=== PATIENT | female | born 1975 | race Caucasian/White ===

== ENCOUNTER → 2024-07-18 17:25 | Outpatient (CLI) | payer OTHER, SELFPAY ==
--- NOTE | 2024-07-18 | DI.MRI.S_ITS ---
PROCEDURE: MR THORACIC SPINE WO CON INDICATIONS: BACK PAIN TECHNIQUE: Noncontrast sagittal T1 spine echo and T2 fast spin echo, sagittal STIR, and T2 fast spin echo through the thoracic spine. COMPARISON: None. FINDINGS: Image quality: Excellent. Alignment and Curvature: There is normal bony alignment. Bone Marrow: Marrow is of normal overall signal. No suspicious marrow edema. There are a few levels of endplate irregularity due to Schmorl's nodes, specifically T8 through T12. Small vertebral body hemangioma in T7. No acute vertebral body compression fractures. Spinal Cord: From T8 through T11, there is a thin syrinx. It measures 3 mm in maximal diameter at the T9 level. Paraspinous Soft Tissues: No paravertebral masses. Miscellaneous: There are small posterior disc bulges at several levels, specifically left paracentral at T5-6, posteriorly at T6-7, right paracentral at T7-8 which slightly L2 the cord shape but no significant CSF space effacement. Neural foramina are widely patent at all levels. Small nerve sheath cyst on the right at T11-12. 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 Multiple levels of mild degenerative disc bulge, predominantly in the mid thoracic spine. Dictated by: Claudia Dennis M.D. on 07/19/2024 at 9:40 Approved by: Claudia Dennis M.D. on 07/19/2024 at 10:23
--- NOTE | 2024-07-18 17:29 | DI.MRI.S_ITS ---
PROCEDURE: MR CERVICAL SPINE WO CON INDICATIONS: HYPERREFLEXIA TECHNIQUE: Noncontrast sagittal T1 spin echo and T2 fast spin echo, sagittal STIR, foraminal oblique sagittal T2 fast spin echo, and axial gradient echo or T2 fast spin echo through the cervical spine. COMPARISON: None. FINDINGS: Image quality: Excellent. Alignment and Curvature: Trace retrolisthesis C6-7. Otherwise normal bone alignment. Intact craniocervical junction. Bone Marrow: Marrow demonstrates normal overall signal. Spinal Cord: Visualized spinal cord has normal size and signal. No cerebellar tonsillar herniation. Paraspinous Soft Tissues: No paravertebral masses. Prevertebral soft tissues are normal in thickness. C2-C3: Normal appearance. C3-C4: [id number] left facet arthropathy. Mild uncovertebral joint hypertrophy. Together these findings cause [id number] left foraminal stenosis. C4-C5: Mild circumferential disc osteophyte. Mild uncovertebral joint hypertrophy bilaterally. Moderate right foraminal stenosis. Mild central canal narrowing. C5-C6: Disc desiccation and mild to moderate disc height loss. Mild circumferential disc osteophyte. Moderate to severe right, and [id number] left foraminal narrowing. Mild central canal narrowing. C6-C7: Disc desiccation and moderate disc height loss. Mild circumferential disc osteophyte. Predominantly disc osteophyte causes moderate to severe right foraminal stenosis, moderate left foraminal stenosis, and moderate central canal narrowing with near effacement of CSF space. C7-T1: Mild facet arthropathy. Mild uncovertebral joint hypertrophy. Moderate right foraminal narrowing. No significant central canal narrowing. IMPRESSION: Multilevel disc osteophyte, uncovertebral joint hypertrophy, and occasional facet arthropathy cause multilevel bilateral foraminal narrowing which may be symptomatic. This is most severe at the C6-7 level where central canal stenosis is also seen. Dictated by: Claudia Dennis M.D. on 07/19/2024 at 9:26 Approved by: Claudia Dennis M.D. on 07/19/2024 at 9:40
== END ==
PROVIDERS: PCP Family Medicine; Referring Provider Physician Assistant; Visit Provider Physician Assistant
DX: M47.812 Spondylosis without myelopathy or radiculopathy, cervical region (principal); M48.02 Spinal stenosis, cervical region; M51.34 Other intervertebral disc degeneration, thoracic region; M47.816 Spondylosis without myelopathy or radiculopathy, lumbar region; M54.50 Low back pain, unspecified; R29.2 Abnormal reflex; M62.89 Other specified disorders of muscle; G89.29 Other chronic pain
CPT/HCPCS: 72141; 72146